=== PATIENT | female | born 1985 | race Caucasian/White ===

== ENCOUNTER 2019-12-02 16:53 | Emergency (ER) | payer MEDICAID ==
[~2019-12-02] VITALS: Ht 162.6 cm; Wt 73.0 kg
[2019-12-02 17:00] VITALS: BP 138/95
[2019-12-02] MEDS ORDERED: LORAZEPAM 1MG TABLET PO ONE (17:45)
== END 2019-12-02 20:15 | disposition left against medical advice (07) ==
LOC: ER 16:53
DX: R41.82 Altered mental status, unspecified (principal); F12.10 Cannabis abuse, uncomplicated; I49.9 Cardiac arrhythmia, unspecified
CPT/HCPCS: 93005; 99283